=== PATIENT | female | born 1985 | race Caucasian/White ===

== ENCOUNTER 2017-05-10 10:34 | Emergency (ER) | payer SELFPAY ==
[2017-05-10 13:34] LABS: Bilirubin Negative (Negative); Blood, Urine Negative (Negative); Clarity CLEAR (Clear); Glucose, Urine (Dipstick) Negative (Negative); Leukocyte Small (Negative); Nitrite Negative (Negative); Protein, Urine (Dipstick) Negative (Neg-Trace); Specific Gravity, Urine 1.009 (1.002-1.036); Urobilinogen 0.2 mg/dL (0.2-1.0)
[2017-05-10 13:35] LABS: Pregnancy Test - Urine (BHCG) Negative (Negative); Pregu Control Background? CLEAR/WHITE (CLR/WHITE); Pregu Control Bar Appear? YES (CONTROL BAR); Specific Gravity 1.009 (1.002-1.036)
[2017-05-10 13:36] LABS: Pathc Cast-AUWi Flag 0.67 (0-2.49)
[2017-05-10 13:47] LABS: Bacteria/HPF 1+ HPF (None Seen); RBC/HPF 0-3 HPF (0-3)
[2017-05-10 13:48] LABS: Hyaline Casts/LPF NONE SEEN LPF (0-3 Hyaline)
[2017-05-10] MEDS ORDERED: Metoclopramide HCl 10 MG/2 ML VIAL ONE (13:49)
[2017-05-10 14:04] LABS: #Lymphocytes 1.1 thou/uL (1.20-3.40); #Monocytes 0.4 thou/uL (0.11-0.59); #Neutrophils 1.4 thou/uL (1.40-6.50); %Basophils 0.5 % (0.0-1.0); %Eosinophils 0.8 % (0.0-10.0); %Lymphocytes 36.3 % (21.0-51.0); %Monocytes 14.3 % (0.0-10.0); Hemoglobin 14.9 g/dL (12.0-16.0); Mean Corpuscular HGB CONC 34.9 g/dL (32.0-36.0); Mean Corpuscular Hemoglobin 30.1 pg (27.0-31.0); Mean Corpuscular Volume 86.2 fl (81.0-99.0); Platelet Count 160 thou/uL (130-400); RBC Distribution Width 11.8 % (11.5-14.5); Red Blood Cell (RBC) Count 4.95 mill/uL (4.20-5.40); White Blood Cell (WBC) Count 2.9 thou/uL (4.8-10.8)
[2017-05-10 14:24] LABS: ALT (SGPT) 57 U/L (8-55); AST (SGOT) 49 U/L (5-34); Albumin 4.3 g/dL (3.5-5.0); Alkaline Phosphatase 80 U/L (40-150); Anion Gap 14 mmol/L (10-20); BUN (Urea Nitrogen) 7 mg/dL (7.0-18.7); Bilirubin, Total 0.4 mg/dL (0.2-1.2); Calc. Creatinine Clearance 0 mL/min (70-130); Calcium 9.2 mg/dL (7.8-10.44); Carbon Dioxide 20 mmol/L (22-29); Chloride 108 mmol/L (98-107); Estimated GFR-MDRD Greater than 90; Globulin 3.1 g/dL (2.4-3.5); Glucose 82 mg/dL (70-105); Protein, Total 7.4 g/dL (6.0-8.3); Sodium 138 mmol/L (136-145)
[2017-05-10 14:28] LABS: BHCG - Serum Negative (NEGATIVE); Pregs Control Background? CLEAR/WHITE (CLR/WHITE); Pregs Control Bar Appear? YES (CONTROL BAR)
[2017-05-10] MEDS ORDERED: Ketorolac Tromethamine 30 MG/ML VIAL ONE (14:58)
[2017-05-10] MEDS ORDERED: Famotidine/PF 20 mg/2ml Vial ONE (14:58)
== END 2017-05-10 15:47 | disposition home or self-care (01) ==
LOC: ERS 10:34
DX: R11.2 Nausea with vomiting, unspecified (principal); R19.7 Diarrhea, unspecified; F41.9 Anxiety disorder, unspecified; F17.210 Nicotine dependence, cigarettes, uncomplicated
CPT/HCPCS: 80053; 81003; 81015; 81025; 84703; 85025; 87086; 87804; 96365; 96366; 96375; J1885; J2765; S0028

== ENCOUNTER 2022-05-07 15:23 | Outpatient (CLI) | payer OTHER | END 2022-05-07 15:24 | disposition home or self-care (01) | LOC: RAD 15:23 | PROVIDERS: ATTEND Family Medicine | DX: R06.02 Shortness of breath (principal); R53.83 Other fatigue | CPT/HCPCS: 71046 ==

== ENCOUNTER 2022-06-19 13:19 | Outpatient (CLI) | payer OTHER | END 2022-06-19 13:20 | disposition home or self-care (01) | LOC: BICMAMMO 13:19 | PROVIDERS: ATTEND Family Medicine | DX: Z12.31 Encounter for screening mammogram for malignant neoplasm of breast (principal) | CPT/HCPCS: 77063; 77067 ==